=== PATIENT | female | born 1965 | race Caucasian/White ===

== ENCOUNTER 2023-06-10 09:40 | Emergency (ER) | payer MEDICAID ==
[2023-06-10] MEDS ORDERED: Sodium Chloride 0.9% 10 ML Syringe FLUSH PRN (09:48)
[2023-06-10] MEDS ORDERED: EPINEPHrine 1 MG/ML SDV IM ONE (09:49)
[2023-06-10] MEDS ORDERED: diphenhydrAMINE 50 MG/ML SDV IM ONE (09:49)
[2023-06-10] MEDS ORDERED: Famotidine 20 MG/2 ML SDV IVPUSH ONE (09:49)
[2023-06-10] MEDS ORDERED: methylPREDNISolone Sodium Succinate 125 MG/2 ML SDV IV ONE (09:49)
[2023-06-10] MEDS ORDERED: diphenhydrAMINE 50 MG/ML SDV IVPUSH ONE (10:08)
== END 2023-06-10 11:22 | disposition home or self-care (01) ==
LOC: JP.ED 09:40
DX: T50.995A Adverse effect of other drugs, medicaments and biological substances, initial encounter (principal); Z88.1 Allergy status to other antibiotic agents; Z88.8 Allergy status to other drugs, medicaments and biological substances
CPT/HCPCS: 96372; 96374; 96375; 99284; J0171; J1200; J2930; J3490; 99282